=== PATIENT | female | born 1995 | race Caucasian/White ===

== ENCOUNTER 2016-12-18 19:43 | Emergency (ER) | payer OTHER ==
[~2016-12-18] VITALS: Ht 147.3 cm; Wt 46.3 kg
[~2016-12-18 19:43] MED LIST: MOTRIN800 MG PO; NATURAL IRON65 MG PO; PRENATAL VITAMI1 T10 PO
[2016-12-18 20:13] VITALS: BP 109/58
--- NOTE | 2016-12-18 21:39 | NUR ---
PT TAKEN TO BED 7
--- NOTE | 2016-12-18 21:51 | NUR ---
21Y F PRESENTED TO ER C/O OF COUGH FOR 2 WKS NOW.NO DISTRESS NOTED. C/O OF PAIN TO CHEST AND THROAT WHEN COUGHING. V/S WNL. PT ON ISONIAZID TREATMENT FOR 6 MOS. STARTED MED 9 DAYS AGO.
--- NOTE | 2016-12-18 21:53 | NUR ---
X-Ray at bedside.
--- NOTE | 2016-12-18 22:22 | NUR ---
Dr. Winslow evaluating patient at bedside.
--- NOTE | 2016-12-18 22:50 | NUR ---
Patient discharged with v/s stable. Written and verbal after care instructions given and explained BY DR POWER. Patient alert, oriented and verbalized understanding of instructions. Ambulatory with steady gait. All questions addressed prior to discharge. ID band removed. Patient advised to follow up with PMD. Rx of DEXTROMETHORPHAN given. Patient educated on indication of medication including possible reaction and side effects. Opportunity to ask questions provided and answered.
[2016-12-18 22:58] VITALS: BP 101/56
== END 2016-12-18 22:50 | disposition home or self-care (01) ==
LOC: MED 19:43
DX: J06.9 Acute upper respiratory infection, unspecified (principal)
CPT/HCPCS: 71010; 99283; Q0092

== ENCOUNTER 2017-03-29 10:16 | Emergency (ER) | payer OTHER ==
[~2017-03-29] VITALS: Ht 144.8 cm; Wt 43.5 kg
[~2017-03-29 10:16] MED LIST changes: +IBUP-974 PO; -MOTRIN800 MG PO; -NATURAL IRON65 MG PO; +PREN-385 PO; -PRENATAL VITAMI1 T10 PO
[2017-03-29 10:25] VITALS: BP 99/68
--- NOTE | 2017-03-29 10:38 | NUR ---
Patient to bed 07.
--- NOTE | 2017-03-29 10:40 | NUR ---
PATIENT PRESENTS TO ED WITH C/O N/V/D SINCE LAST NIGHT; CRAMPING MID EPIGASTRIC PAIN 8/10; HX; DENIES RX; DENIES; SKIN IS PINK/WARM/DRY; AAOX4 WITH EVEN AND STEADY GAIT; LUNGS CLEAR BL; HR EVEN AND REGULAR; PT DENIES ANY FEVER, CP, SOB, OR COUGH AT THIS TIME; PATIENT STATES MID EPIGASTRIC PAIN OF 8/10 AT THIS TIME; VSS; PATIENT POSITIONED FOR COMFORT; HOB ELEVATED; BEDRAILS UP X2; BED DOWN. ER MD MADE AWARE OF PT STATUS.
--- NOTE | 2017-03-29 10:41 | NUR ---
Dr. Grubbs evaluating patient at bedside.
[2017-03-29] MEDS ORDERED: ONDANSETRON 4 MG ODT SL PRN (10:50)
[2017-03-29 11:30] VITALS: BP 99/62
== END 2017-03-29 11:30 | disposition home or self-care (01) ==
LOC: MED 10:16
DX: K52.9 Noninfective gastroenteritis and colitis, unspecified (principal)
CPT/HCPCS: 99283; S0119

== ENCOUNTER 2020-08-02 19:12 | Emergency (ER) | payer OTHER ==
[~2020-08-02] VITALS: Ht 144.8 cm; Wt 59.9 kg
[2020-08-02 19:21] VITALS: BP 113/76
[2020-08-02] MEDS ORDERED: DOPPLER MC ONE (19:33)
[2020-08-02 20:11] VITALS: BP 113/76
== END 2020-08-02 20:11 | disposition home or self-care (01) ==
LOC: MED 19:12
DX: O26.892 Other specified pregnancy related conditions, second trimester (principal); R10.30 Lower abdominal pain, unspecified; Z79.899 Other long term (current) drug therapy
CPT/HCPCS: 81002; 81025; 99284

== ENCOUNTER 2021-03-17 17:10 | Emergency (ER) | payer OTHER ==
[~2021-03-17] VITALS: Ht 144.8 cm; Wt 58.1 kg
[2021-03-17 17:18] VITALS: BP 120/71
--- NOTE | 2021-03-17 17:22 | NUR ---
PT AMBULATED TO RESTROOM WITH STEADY GAIT
--- NOTE | 2021-03-17 17:25 | NUR ---
PT AMBULATED TO ER BED 3
--- NOTE | 2021-03-17 17:31 | NUR ---
26 Y/O FEMALE COMPLAINS OF RLQ/ABDOMINAL PAIN X 2 MONTHS SINCE C SECTION. PT STATES PAIN WORSE LAST 2 WEEKS, NOTICED WHITE PUS FROM SITE TODAY. PT RATES PAIN 9/10 THAT SHE DESCRIBES CONTINUOUS SORENESS AND INTERMITTENT SHARPNESS AT THE INCISION SITE. ABD IS ROUND, SOFT, AND TENDER ON PALPATION WITH ACTIVE BOWEL SOUNDS X4 QUADS. NO DRAINAGE/REDNESS FROM INCISION SITE NOTED. PT TOOK IBUPROFEN THIS MORNING WITH MINIMAL RELIEF AND COLACE. PT DENIES N/V/D. PT STATED SHE WAS NOT ABLE TO FOLLOW UP WITH HER OBGYN. PT A/O X4 WITH EVEN AND UNLABORED RESPIRATIONS. PT IN BED WITH BED IN LOWEST POSITION, BRAKES LOCKED, X1 SIDERAIL UP. PMH-DENIES SX:3 NKA
--- NOTE | 2021-03-17 17:50 | NUR ---
DR HUNT AT BEDSIDE EVALUATING PT
[2021-03-17 18:08] LABS: BASOPHILS # (AUTO) 0.1 K/uL (0.00-0.22); BASOPHILS % (AUTO) 0.9 % (0.0-2.0); EOSINOPHILS # (AUTO) 0.2 K/uL (0-0.4); EOSINOPHILS % (AUTO) 3.8 % (0.0-4.0); HEMATOCRIT 32.5 % (36-48); HEMOGLOBIN 10.8 g/dL (12.0-16.0); LYMPHOCYTES # (AUTO) 2.1 K/uL (2.5-16.5); LYMPHOCYTES % (AUTO) 33.8 % (20.5-51.1); MEAN CORPUSCULAR HEMOGLOBIN 27 pg (27-31); MEAN CORPUSCULAR HGB CONC 33 g/dL (33-37); MEAN CORPUSCULAR VOLUME 81.4 fL (80-94); MONOCYTES # (AUTO) 0.5 K/uL (0.8-1.0); MONOCYTES % (AUTO) 8.2 % (1.7-9.3); NEUTROPHILS # (AUTO) 3.4 K/uL (1.8-7.7); NEUTROPHILS % (AUTO) 53.3 % (42.2-75.2); PLATELET COUNT (AUTO) 254 K/uL (140-450); RED CELL DISTRIBUTION WIDTH 19.2 % (11.6-13.7); WHITE BLOOD COUNT (AUTO) 6.3 K/uL (4.8-10.8)
[2021-03-17 18:33] LABS: ANION GAP 8.9 (8-16); CARBON DIOXIDE 29.2 mmol/L (21-32); CREATININE 0.6 mg/dL (0.6-1.3); POTASSIUM 4.1 mmol/L (3.5-5.1)
[2021-03-17 18:39] LABS: ALBUMIN 3.5 g/dL (3.4-5.0); TOTAL BILIRUBIN 0.1 mg/dL (0.0-1.0)
--- NOTE | 2021-03-17 19:16 | NUR ---
REPORT GIVEN TO DENISE RN. TRANSFER OF CARE AT THIS TIME.
--- NOTE | 2021-03-17 19:16 | NUR ---
RECEIVED REPORT FROM KOKO DURANT FOR CONTINUITY OF CARE
[2021-03-17] MEDS: KETOROLAC 30 MG/ML VIAL IM ONE (19:39)
[2021-03-17 20:14] VITALS: BP 120/71
--- NOTE | 2021-03-17 20:15 | NUR ---
Patient discharged with v/s stable. Written and verbal after care instructions given and explained. Patient verbalized understanding. Ambulatory with steady gait. All questions addressed prior to discharge. Advised to follow up with PMD.
== END 2021-03-17 20:15 | disposition home or self-care (01) ==
LOC: MED 17:10
DX: R10.31 Right lower quadrant pain (principal)
CPT/HCPCS: 36415; 74176; 80048; 80076; 81002; 81025; 83690; 85025; 96372; 99284; J1885

== ENCOUNTER 2022-10-23 23:30 | Emergency (ER) | payer OTHER ==
[~2022-10-23] VITALS: Ht 144.8 cm; Wt 56.7 kg
[2022-10-23 23:34] VITALS: BP 123/64
--- NOTE | 2022-10-23 23:34 | NUR ---
TO BED AMBULATORY
[2022-10-24] MEDS ORDERED: KETOROLAC 30 MG/ML VIAL IVP ONE (00:40)
[2022-10-24] MEDS ORDERED: NACL 0.9% 1,000 ML IV ONE (00:40)
[2022-10-24 00:58] LABS: APPEARANCE,URINE CLEAR (CLEAR); BILIRUBIN,URINE NEGATIVE (NEGATIVE); BLOOD, URINE TRACE-I (NEGATIVE); COLOR,URINE YELLOW (YELLOW); LEUKOCYTE ESTERASE ,URINE NEGATIVE (NEGATIVE); NITRITE, URINE NEGATIVE (NEGATIVE); PH,URINE 6.5 (5.0-9.0); UGLUCOSE NEGATIVE (NEGATIVE)
--- NOTE | 2022-10-24 01:07 | NUR ---
STREP AND COVID COLLECTED. BLOOD DRAWN VIA IV START.
[2022-10-24 01:19] LABS: RBC,URINE 0-5 /HPF (0-5); URINE AMORPHOUS URATE 1+ /HPF (None Seen); WBC,URINE 0-5 /HPF (0-5)
[2022-10-24 01:30] LABS: ALBUMIN 3.5 g/dL (3.4-5.0); ANION GAP 12.1 (8-16); CARBON DIOXIDE 26.8 mmol/L (21-32); CREATININE 0.6 mg/dL (0.6-1.3); POTASSIUM 3.9 mmol/L (3.5-5.1); TOTAL BILIRUBIN 0.1 mg/dL (0.0-1.0)
[2022-10-24 01:45] LABS: BASOPHILS % (AUTO) 0.5 % (0.0-2.0); EOSINOPHILS # (AUTO) 0.1 K/uL (0-0.4); EOSINOPHILS % (AUTO) 0.6 % (0.0-4.0); HEMATOCRIT 33.3 % (36-48); HEMOGLOBIN 10.6 g/dL (12.0-16.0); LYMPHOCYTES # (AUTO) 1.2 K/uL (2.5-16.5); MEAN CORPUSCULAR HEMOGLOBIN 24 pg (27-31); MEAN CORPUSCULAR HGB CONC 32 g/dL (33-37); MEAN CORPUSCULAR VOLUME 76.2 fL (80-94); MONOCYTES # (AUTO) 0.7 K/uL (0.8-1.0); MONOCYTES % (AUTO) 6.9 % (1.7-9.3); NEUTROPHILS # (AUTO) 7.8 K/uL (1.8-7.7); PLATELET COUNT (AUTO) 258 K/uL (140-450); RED BLOOD CELL COUNT(AUTO) 4.36 MIL/uL (4.20-5.40); RED CELL DISTRIBUTION WIDTH 16.5 % (11.6-13.7); WHITE BLOOD COUNT (AUTO) 9.8 K/uL (4.8-10.8)
[2022-10-24] MEDS ORDERED: DICYCLOMINE HCL LIQUID 20 MG, ALUMINUM HYD/MAG/SIMETHICONE 30 ML, LIDOCAINE VISCOUS 2% ... PO ONE ×3 (01:55)
[2022-10-24] MEDS ORDERED: FAMO-90 PO (01:58)
[2022-10-24] MEDS ORDERED: ACET-10509 PO (01:58)
[2022-10-24] MEDS ORDERED: BEN10 PO (01:58)
[2022-10-24] MEDS ORDERED: DICYCLOMINE HCL LIQUID 10 MG/5 ML UDC ONE ×2 (02:16→02:18)
[2022-10-24] MEDS ORDERED: ALUMINUM HYD/MAG/SIMETHICONE 30 ML UDC ONE ×2 (02:16→02:18)
[2022-10-24 02:50] VITALS: BP 123/64
--- NOTE | 2022-10-24 02:50 | NUR ---
Patient discharged with v/s stable. Written and verbal after care instructions given and explained. Patient alert, oriented and verbalized understanding of instructions. Ambulatory with steady gait. All questions addressed prior to discharge. ID band removed. Patient advised to follow up with PMD. Rx of TYLENOL EXTRA STRENGTH, BENTYL, PEPCID given. Patient educated on indication of medication including possible reaction and side effects. Opportunity to ask questions provided and answered. DX: ABDOMINAL PAIN, ADULT, VIRAL ILLNESS, ADULT
== END 2022-10-24 02:50 | disposition home or self-care (01) ==
LOC: MED 23:30
DX: K76.0 Fatty (change of) liver, not elsewhere classified (principal); Z20.822 Contact with and (suspected) exposure to COVID-19; B34.9 Viral infection, unspecified; Z98.890 Other specified postprocedural states
CPT/HCPCS: 36415; 71045; 76705; 80053; 81001; 81025; 83690; 85025; 87081; 87426; 96361; 96374; 99285; J1885; J7030; Q0092

== ENCOUNTER 2023-05-18 11:50 | Emergency (ER) | payer OTHER ==
[~2023-05-18] VITALS: Ht 144.8 cm; Wt 55.8 kg
[~2023-05-18 11:50] MED LIST changes: +ACET-10509 PO; +BEN10 PO; +FAMO-90 PO
[2023-05-18 11:58] VITALS: BP 105/65; PULSE 70; RESP 18; TEMP 97.8; O2SAT 98
[2023-05-18] MEDS ORDERED: KETOROLAC 30 MG/ML VIAL IVP ONE (12:20)
[2023-05-18] MEDS ORDERED: ONDANSETRON 4 MG/2 ML VIAL IVP ONE (12:25)
--- NOTE | 2023-05-18 12:28 | NUR ---
28 yo/f w c/o mid-abdominal pain radiating to upper R quadrant constant sharp 9/10, +n/v. pt took tylenol at 1000. denies fevers, chills, diarrhea, or urinary symptoms. pmh: denies allergies: denies
[2023-05-18 12:32] LABS: BASOPHILS % (AUTO) 0.6 % (0.0-2.0); EOSINOPHILS # (AUTO) 0.1 K/uL (0-0.4); EOSINOPHILS % (AUTO) 1.7 % (0.0-4.0); HEMATOCRIT 32.3 % (36-48); HEMOGLOBIN 10.4 g/dL (12.0-16.0); LYMPHOCYTES # (AUTO) 1.6 K/uL (2.5-16.5); LYMPHOCYTES % (AUTO) 28.1 % (20.5-51.1); MEAN CORPUSCULAR HEMOGLOBIN 25 pg (27-31); MEAN CORPUSCULAR HGB CONC 32 g/dL (33-37); MEAN CORPUSCULAR VOLUME 76.7 fL (80-94); MONOCYTES # (AUTO) 0.5 K/uL (0.8-1.0); MONOCYTES % (AUTO) 8.7 % (1.7-9.3); NEUTROPHILS # (AUTO) 3.4 K/uL (1.8-7.7); NEUTROPHILS % (AUTO) 60.9 % (42.2-75.2); PLATELET COUNT (AUTO) 246 K/uL (140-450); RED BLOOD CELL COUNT(AUTO) 4.21 MIL/uL (4.20-5.40); RED CELL DISTRIBUTION WIDTH 16.9 % (11.6-13.7); WHITE BLOOD COUNT (AUTO) 5.5 K/uL (4.8-10.8)
[2023-05-18 12:48] LABS: ALBUMIN 3.7 g/dL (3.4-5.0); ANION GAP 10.6 (8-16); CARBON DIOXIDE 27.3 mmol/L (21-32); CREATININE 0.5 mg/dL (0.6-1.3); POTASSIUM 3.9 mmol/L (3.5-5.1); TOTAL BILIRUBIN 0.2 mg/dL (0.0-1.0)
[2023-05-18] MEDS ORDERED: ONDA-188 SL (13:26)
[2023-05-18] MEDS ORDERED: OMEP20EC11 PO (13:26)
[2023-05-18] MEDS ORDERED: FERR325E14 PO (13:28)
--- NOTE | 2023-05-18 13:38 | NUR ---
pt reports n/v resolved at this time and pain greately improved. per AXEL Randhawa pt up for d/c no need to wait on US report.
[2023-05-18 13:39] VITALS: BP 110/68; PULSE 62; RESP 18; TEMP 97.8; O2SAT 100
--- NOTE | 2023-05-18 13:39 | NUR ---
Patient discharged with v/s stable. Written and verbal after care instructions given and explained. Patient alert, oriented and verbalized understanding of instructions. Ambulatory with steady gait. All questions addressed prior to discharge. ID band removed. Patient advised to follow up with PMD. Rx of ferrous sulfate, omeprazole, zofran given. Patient educated on indication of medication including possible reaction and side effects. Opportunity to ask questions provided and answered.
== END 2023-05-18 13:39 | disposition home or self-care (01) ==
LOC: MED 11:50
DX: K29.70 Gastritis, unspecified, without bleeding (principal); D64.9 Anemia, unspecified; Z79.899 Other long term (current) drug therapy
CPT/HCPCS: 36415; 76705; 80053; 81002; 81025; 83690; 85025; 96374; 96375; 99285; J1885; J2405; Q0092